=== PATIENT | female | born 1985 | race Caucasian/White ===

== ENCOUNTER 2016-04-02 16:33 | Emergency (ER) | payer OTHER ==
[~2016-04-02] VITALS: Wt 129.7 kg
[~2016-04-02 16:33] MED LIST: AMOXICILLIN500 M2 PO; HUMIRA40 MG/0.1 SC; MOTRIN800 MG PO; NKHM; ROBAXIN750 MG PO; VICODIN 5/500 505 MG PO
[2016-04-02 17:15] LABS: BASO # 0.1 10*3/uL (0.0-0.1); BASO % 0.5 % (0.0-1.0); EOS # 0.2 10*3/uL (0.0-0.4); EOS % 1.9 % (1.0-4.0); HEMATOCRIT 37.4 % (37.0-47.0); HEMOGLOBIN 12.4 g/dl (12.0-16.0); LYMPH # 2.3 10*3/uL (1.3-4.4); LYMPH % 20.2 % (27.0-41.0); MEAN CELL VOLUME 91.9 fl (81.0-99.0); MEAN CORPUSCULAR HGB 30.5 pg (27.0-31.0); MEAN CORPUSCULAR HGB CONC 33.2 g/dl (33.0-37.0); MEAN PLATELET VOLUME 10.4 fl (9.6-12.3); MONO # 0.7 10*3/uL (0.1-1.0); MONO % 6.4 % (3.0-9.0); NEUT # 8.1 10*3/uL (2.3-7.9); NEUT % 70.7 % (47.0-73.0); PLATELET COUNT AUTOMATED 344 10*3/uL (130-400); RED BLOOD COUNT 4.07 10*6/uL (4.10-5.10); RED CELL DISTRI WIDTH 12.3 % (0-14.5); WHITE BLOOD COUNT 11.5 10*3/uL (4.8-10.8)
[2016-04-02 17:29] LABS: ALBUMIN 3.3 gm/dl (3.1-4.5); ALKALINE PHOSPHATASE 62 U/L (45-117); BILIRUBIN, TOTAL 0.2 mg/dl (0.2-1.0); BUN 9 mg/dl (7-24); CARBON DIOXIDE 28 mmol/L (21-32); CHLORIDE 107 mmol/L (98-107); EST GLOM FILT AFRICAN AMERICAN > 60 ml/min; GLUCOSE 87 mg/dL (65-99); POTASSIUM 4.6 mmol/L (3.5-5.1); SGOT/AST 11 IU/L (3-35); SGPT/ALT 30 U/L (12-78); SODIUM 142 mmol/L (136-145); TOTAL PROTEIN 7.3 gm/dL (6.4-8.2)
[2016-04-02 19:04] LABS: BILIRUBIN NEGATIVE (NEGATIVE); BLOOD NEGATIVE (NEGATIVE); CLARITY SL CLOUDY (CLEAR); COLOR YELLOW (YELLOW); GLUCOSE NEGATIVE (NEGATIVE); KETONE NEGATIVE (NEGATIVE); LEUKO ESTERASE NEGATIVE (NEGATIVE); NITRITE NEGATIVE (NEGATIVE); PROTEIN NEGATIVE (NEGATIVE); UROBILINOGEN 0.2 E.U./dl (0.2-1.0)
[2016-04-02 19:18] LABS: BACTERIA 2+; EPITHELIAL CELLS 15-20; URINE REFLEX COMMENT YES (NO)
[2016-04-02] MEDS ORDERED: CIPRO500 MG PO (19:43)
[2016-04-02] MEDS ORDERED: FLAGYL500 MG PO (19:43)
[2016-04-02] MEDS ORDERED: HYDROCODONE BIT1 T11 PO (19:49)
== END 2016-04-02 19:57 | disposition home or self-care (01) ==
LOC: ED 16:33
PROVIDERS: Physician Assistant
DX: K57.32 Diverticulitis of large intestine without perforation or abscess without bleeding (principal); F17.200 Nicotine dependence, unspecified, uncomplicated; Z90.49 Acquired absence of other specified parts of digestive tract

== ENCOUNTER → 2016-08-15 | Outpatient (CLI) | payer OTHER ==
[~2016-08-15] MED LIST changes: +CIPRO500 MG PO; +FLAGYL500 MG PO; +HYDROCODONE BIT1 T11 PO
[2016-08-15 10:09] LABS: BASO # 0.1 10*3/uL (0.0-0.1); BASO % 0.5 % (0.0-1.0); EOS # 0.2 10*3/uL (0.0-0.4); EOS % 2.2 % (1.0-4.0); HEMATOCRIT 38.4 % (37.0-47.0); LYMPH # 2.3 10*3/uL (1.3-4.4); LYMPH % 21.7 % (27.0-41.0); MEAN CELL VOLUME 91.2 fl (81.0-99.0); MEAN CORPUSCULAR HGB 30.9 pg (27.0-31.0); MEAN CORPUSCULAR HGB CONC 33.9 g/dl (33.0-37.0); MEAN PLATELET VOLUME 11.6 fl (9.6-12.3); MONO # 0.6 10*3/uL (0.1-1.0); MONO % 6.1 % (3.0-9.0); NEUT # 7.2 10*3/uL (2.3-7.9); NEUT % 69.2 % (47.0-73.0); PLATELET COUNT AUTOMATED 275 10*3/uL (130-400); RED BLOOD COUNT 4.21 10*6/uL (4.10-5.10); RED CELL DISTRI WIDTH 12.9 % (0-14.5); WHITE BLOOD COUNT 10.4 10*3/uL (4.8-10.8)
[2016-08-15 10:39] LABS: ALBUMIN 3.7 gm/dl (3.1-4.5); ALKALINE PHOSPHATASE 60 U/L (45-117); BILIRUBIN, TOTAL 0.3 mg/dl (0.2-1.0); BUN 10 mg/dl (7-24); CARBON DIOXIDE 24 mmol/L (21-32); CHLORIDE 108 mmol/L (98-107); EST GLOM FILT AFRICAN AMERICAN > 60 ml/min; GLUCOSE 83 mg/dL (65-99); IRON 71 ug/dL (50-170); IRON SATURATION 18 %; POTASSIUM 4.3 mmol/L (3.5-5.1); SGOT/AST 17 IU/L (3-35); SGPT/ALT 20 U/L (12-78); SODIUM 142 mmol/L (136-145); TOTAL PROTEIN 7.4 gm/dL (6.4-8.2); UIBC 321 ug/dL (110-365)
[2016-08-15 13:12] LABS: VITAMIN D, 25-HYDROXY 15.8 ng/mL (30-100)
[2016-08-15 13:13] LABS: FERRITIN 37.9 ng/mL (10.0-291.0); FOLIC ACID 12.68 ng/mL (>5.38)
== END ==
LOC: LAB 09:47
PROVIDERS: Physician Assistant Surgical
DX: E56.9 Vitamin deficiency, unspecified (principal); Z98.84 Bariatric surgery status; R63.4 Abnormal weight loss; R53.83 Other fatigue

== ENCOUNTER 2019-05-02 11:16 | Emergency (ER) | payer SELFPAY ==
[~2019-05-02] VITALS: Ht 177.8 cm; Wt 83.9 kg
[~2019-05-02 11:16] MED LIST changes: +MEDROL DOSEPAK4 MG PO; +NAPROSYN500 MG PO; +ROBAXIN500 M1 PO
[2019-05-02] MEDS ORDERED: NORCO 5-325 TA1 EACH PO (12:41)
== END 2019-05-02 12:45 | disposition home or self-care (01) ==
LOC: ED 11:16
DX: S20.211A Contusion of right front wall of thorax, initial encounter (principal); F17.200 Nicotine dependence, unspecified, uncomplicated; X58.XXXA Exposure to other specified factors, initial encounter; Y93.89 Activity, other specified; Y92.89 Other specified places as the place of occurrence of the external cause; Y99.8 Other external cause status

== ENCOUNTER → 2021-01-21 | Outpatient (CLI) | payer OTHER ==
[~2021-01-21] MED LIST changes: +NORCO 5-325 TA1 EACH PO
[2021-01-21 08:14] LABS: BASO % 0.3 % (0.0-1.0); EOS # 0.2 10*3/uL (0.0-0.4); EOS % 1.3 % (1.0-4.0); HEMATOCRIT 39.6 % (37.0-47.0); LYMPH # 1.7 10*3/uL (1.3-4.4); LYMPH % 12.7 % (27.0-41.0); MEAN CELL VOLUME 95.7 fl (81.0-99.0); MEAN CORPUSCULAR HGB 31.2 pg (27.0-31.0); MEAN CORPUSCULAR HGB CONC 32.6 g/dl (33.0-37.0); MEAN PLATELET VOLUME 10.4 fl (9.6-12.3); MONO # 0.9 10*3/uL (0.1-1.0); MONO % 7.1 % (3.0-9.0); NEUT # 10.2 10*3/uL (2.3-7.9); NEUT % 78.4 % (47.0-73.0); PLATELET COUNT AUTOMATED 300 10*3/uL (130-400); RED BLOOD COUNT 4.14 10*6/uL (4.10-5.10); RED CELL DISTRI WIDTH 12.7 % (0-14.5)
[2021-01-21 08:52] LABS: ALBUMIN 3.5 gm/dl (3.1-4.5); ALKALINE PHOSPHATASE 53 U/L (45-117); BUN 7 mg/dl (7-24); CHLORIDE 105 mmol/L (98-107); CREATININE 0.67 mg/dL (0.55-1.02); POTASSIUM 4.1 mmol/L (3.5-5.1); SGOT/AST 29 IU/L (3-35); SGPT/ALT 56 U/L (12-78); SODIUM 140 mmol/L (136-145); TOTAL PROTEIN 7.3 gm/dL (6.4-8.2)
== END | disposition home or self-care (01) ==
LOC: LAB 07:59
PROVIDERS: ATTEND Nurse Practitioner Family
DX: L40.9 Psoriasis, unspecified (principal)

== ENCOUNTER 2022-04-24 10:20 | Emergency (ER) | payer OTHER ==
[~2022-04-24] VITALS: Ht 177.8 cm; Wt 90.7 kg
[2022-04-24] MEDS ORDERED: CYCLOBENZAPRINE10 MG PO (12:33)
== END 2022-04-24 12:38 | disposition home or self-care (01) ==
LOC: ED 10:20
DX: S16.1XXA Strain of muscle, fascia and tendon at neck level, initial encounter (principal); Z98.890 Other specified postprocedural states; F10.90 Alcohol use, unspecified, uncomplicated; V09.9XXA Pedestrian injured in unspecified transport accident, initial encounter; Y93.89 Activity, other specified; Y92.89 Other specified places as the place of occurrence of the external cause; Y99.8 Other external cause status

== ENCOUNTER 2022-07-05 21:03 | Emergency (ER) | payer OTHER ==
[~2022-07-05] VITALS: Ht 177.8 cm; Wt 88.5 kg
[~2022-07-05 21:03] MED LIST changes: +CYCLOBENZAPRINE10 MG PO
== END 2022-07-05 21:51 | disposition home or self-care (01) ==
LOC: ED 21:03
DX: J02.9 Acute pharyngitis, unspecified (principal); R53.83 Other fatigue; Z98.890 Other specified postprocedural states; Z87.891 Personal history of nicotine dependence

== ENCOUNTER → 2022-07-15 | Outpatient (CLI) | payer OTHER ==
[2022-07-15 07:46] LABS: BASO % 0.5 % (0.0-1.0); EOS # 0.2 10*3/uL (0.0-0.4); EOS % 2.7 % (1.0-4.0); HEMATOCRIT 41.3 % (37.0-47.0); LYMPH # 2.5 10*3/uL (1.3-4.4); MEAN CELL VOLUME 95.4 fl (81.0-99.0); MEAN CORPUSCULAR HGB 30.7 pg (27.0-31.0); MEAN CORPUSCULAR HGB CONC 32.2 g/dl (33.0-37.0); MEAN PLATELET VOLUME 10.6 fl (9.6-12.3); MONO # 0.7 10*3/uL (0.1-1.0); MONO % 8.4 % (3.0-9.0); NEUT # 4.8 10*3/uL (2.3-7.9); PLATELET COUNT AUTOMATED 342 10*3/uL (130-400); RED BLOOD COUNT 4.33 10*6/uL (4.10-5.10); RED CELL DISTRI WIDTH 13.2 % (0-14.5); WHITE BLOOD COUNT 8.3 10*3/uL (4.8-10.8)
[2022-07-15 08:56] LABS: ALKALINE PHOSPHATASE 47 U/L (46-116); BUN 10 mg/dl (9-23); CHLORIDE 106 mmol/L (98-107); CHOLESTEROL 185 mg/dL (<200); LDL CHOLESTEROL 114 mg/dL (9-159); POTASSIUM 4.2 mmol/L (3.4-5.1); THYROID STIM HORMONE (HS) 2.005 uIU/ml (0.550-4.780); TOTAL PROTEIN 7.1 gm/dL (6.0-8.0); TRIGLYCERIDES 92 mg/dl (<150)
[2022-07-15 09:09] LABS: SGPT/ALT < 7 U/L (10-49)
[2022-07-15 10:35] LABS: VITAMIN D, 25-HYDROXY 43.9 ng/mL (30-100)
== END | disposition home or self-care (01) ==
LOC: LAB 07:03
PROVIDERS: ATTEND Family Medicine
DX: M06.4 Inflammatory polyarthropathy (principal); R53.83 Other fatigue; Z98.84 Bariatric surgery status

== ENCOUNTER → 2022-07-27 | Outpatient (CLI) | payer OTHER | END | disposition home or self-care (01) | LOC: RAD 16:31 | PROVIDERS: ATTEND Nurse Practitioner | DX: R05.2 Subacute cough (principal) ==

== ENCOUNTER → 2023-03-01 | Outpatient (CLI) | payer OTHER ==
[~2023-03-01] MED LIST changes: +EPIPEN 2-P0.3 MG/0.3 IJ; +LEVOFLOXACIN750 M2 PO
[2023-03-01 08:57] LABS: BASO # 0.1 10*3/uL (0.0-0.1); BASO % 0.6 % (0.0-1.0); EOS # 0.2 10*3/uL (0.0-0.4); EOS % 1.9 % (1.0-4.0); HEMATOCRIT 38.6 % (37.0-47.0); LYMPH # 1.9 10*3/uL (1.3-4.4); LYMPH % 18.8 % (27.0-41.0); MEAN CELL VOLUME 98.5 fl (81.0-99.0); MEAN CORPUSCULAR HGB 31.9 pg (27.0-31.0); MEAN CORPUSCULAR HGB CONC 32.4 g/dl (33.0-37.0); MEAN PLATELET VOLUME 10.4 fl (9.6-12.3); MONO # 0.8 10*3/uL (0.1-1.0); MONO % 7.4 % (3.0-9.0); NEUT # 7.3 10*3/uL (2.3-7.9); NEUT % 70.9 % (47.0-73.0); PLATELET COUNT AUTOMATED 285 10*3/uL (130-400); RED BLOOD COUNT 3.92 10*6/uL (4.10-5.10); RED CELL DISTRI WIDTH 12.8 % (0-14.5); WHITE BLOOD COUNT 10.3 10*3/uL (4.8-10.8)
[2023-03-01 09:20] LABS: ALKALINE PHOSPHATASE 45 U/L (46-116); BUN 8 mg/dl (9-23); CHLORIDE 109 mmol/L (98-107); POTASSIUM 4.3 mmol/L (3.4-5.1); SGPT/ALT 14 U/L (5-49); TOTAL PROTEIN 6.8 gm/dL (6.0-8.0)
== END | disposition home or self-care (01) ==
LOC: LAB 08:38
PROVIDERS: ATTEND Nurse Practitioner Family
DX: L40.0 Psoriasis vulgaris (principal)

== ENCOUNTER → 2023-04-19 | Outpatient (CLI) | payer OTHER ==
[~2023-04-19] MED LIST changes: +WELLBUTRIN SR150 MG PO
== END | disposition home or self-care (01) ==
LOC: LAB 03:00
PROVIDERS: ATTEND Obstetrics & Gynecology
DX: Z01.812 Encounter for preprocedural laboratory examination (principal)

== ENCOUNTER → 2023-04-23 | Day surgery (SDC) | payer OTHER ==
[~2023-04-23] VITALS: Ht 177.8 cm; Wt 95.3 kg
[2023-04-23 07:50] VITALS: BP 126/64
[2023-04-23 09:32] VITALS: BP 104/64
[2023-04-23 09:47] VITALS: BP 118/70
[2023-04-23 10:00] VITALS: BP 121/67
[2023-04-23 10:15] VITALS: BP 129/63
[2023-04-23 10:32] VITALS: BP 114/68
== END | disposition home or self-care (01) ==
LOC: SDC 04-19 14:00
PROVIDERS: ATTEND Obstetrics & Gynecology
DX: Z30.2 Encounter for sterilization (principal); L40.9 Psoriasis, unspecified; F17.210 Nicotine dependence, cigarettes, uncomplicated; Z98.84 Bariatric surgery status; Z90.49 Acquired absence of other specified parts of digestive tract; Z88.0 Allergy status to penicillin; Z79.899 Other long term (current) drug therapy

== ENCOUNTER 2023-09-24 15:14 | Emergency (ER) | payer OTHER ==
[~2023-09-24] VITALS: Ht 177.8 cm; Wt 90.7 kg
[2023-09-24] MEDS ORDERED: BUPROPION HYDR150 M3 PO (15:25)
== END 2023-09-24 16:51 | disposition home or self-care (01) ==
LOC: ED 15:14
DX: M25.812 Other specified joint disorders, left shoulder (principal); F41.9 Anxiety disorder, unspecified; Z88.0 Allergy status to penicillin; Z90.49 Acquired absence of other specified parts of digestive tract; Z98.890 Other specified postprocedural states

== ENCOUNTER → 2023-11-09 | Outpatient (CLI) | payer OTHER ==
[~2023-11-09] MED LIST changes: +BUPROPION HYDR150 M3 PO
== END | disposition home or self-care (01) ==
LOC: US 12:49
PROVIDERS: ATTEND Nurse Practitioner
DX: R22.32 Localized swelling, mass and lump, left upper limb (principal)

== ENCOUNTER → 2023-11-14 | Outpatient (CLI) | payer OTHER ==
[2023-11-14 08:34] LABS: BASO # 0.1 10*3/uL (0.0-0.1); BASO % 0.7 % (0.0-1.0); EOS # 0.2 10*3/uL (0.0-0.4); EOS % 2.8 % (1.0-4.0); HEMATOCRIT 39.1 % (37.0-47.0); LYMPH # 2.3 10*3/uL (1.3-4.4); LYMPH % 26.7 % (27.0-41.0); MEAN CELL VOLUME 94.7 fl (81.0-99.0); MEAN CORPUSCULAR HGB 31.2 pg (27.0-31.0); MEAN PLATELET VOLUME 10.8 fl (9.6-12.3); MONO # 0.7 10*3/uL (0.1-1.0); MONO % 7.7 % (3.0-9.0); NEUT # 5.2 10*3/uL (2.3-7.9); NEUT % 61.7 % (47.0-73.0); PLATELET COUNT AUTOMATED 306 10*3/uL (130-400); RED BLOOD COUNT 4.13 10*6/uL (4.10-5.10); RED CELL DISTRI WIDTH 13.2 % (0-14.5); WHITE BLOOD COUNT 8.5 10*3/uL (4.8-10.8)
[2023-11-14 09:20] LABS: ALKALINE PHOSPHATASE 48 U/L (46-116); BUN 8 mg/dl (9-23); CHLORIDE 107 mmol/L (98-107); SGPT/ALT 8 U/L (5-49); TOTAL PROTEIN 6.9 gm/dL (6.0-8.0)
== END | disposition home or self-care (01) ==
LOC: LAB 07:42
PROVIDERS: ATTEND Nurse Practitioner Family
DX: L40.0 Psoriasis vulgaris (principal); L29.9 Pruritus, unspecified

== ENCOUNTER 2024-03-13 13:50 | Emergency (ER) | payer OTHER ==
[~2024-03-13] VITALS: Ht 177.8 cm; Wt 87.1 kg
[2024-03-13] MEDS ORDERED: OTEZLA PO (13:56)
== END 2024-03-13 14:15 | disposition home or self-care (01) ==
LOC: ED 13:50
DX: S61.211A Laceration without foreign body of left index finger without damage to nail, initial encounter (principal); Z88.0 Allergy status to penicillin; Z90.49 Acquired absence of other specified parts of digestive tract; Z98.890 Other specified postprocedural states; W26.0XXA Contact with knife, initial encounter; Y93.89 Activity, other specified; Y92.009 Unspecified place in unspecified non-institutional (private) residence as the place of occurrence of the external cause; Y99.8 Other external cause status

== ENCOUNTER 2025-01-14 16:56 | Emergency (ER) | payer OTHER ==
[~2025-01-14] VITALS: Ht 177.8 cm; Wt 77.1 kg
[~2025-01-14 16:56] MED LIST changes: +OTEZLA PO
[2025-01-14] MEDS ORDERED: Acetaminophen/Oxycodone 5 MG/325 MG TABLET PO ONE (17:15)
[2025-01-14] MEDS ORDERED: CLINDAMYCIN HCL 300 MG CAPSULE PO ONE (17:15)
[2025-01-14] MEDS ORDERED: MELOXICAM15 MG PO (17:19)
[2025-01-14] MEDS ORDERED: CLINDAMYCIN HC300 MG PO (17:19)
== END 2025-01-14 19:14 | disposition home or self-care (01) ==
LOC: ED 16:56
DX: K02.9 Dental caries, unspecified (principal); K04.7 Periapical abscess without sinus; F17.290 Nicotine dependence, other tobacco product, uncomplicated; Z88.0 Allergy status to penicillin; Z79.899 Other long term (current) drug therapy